=== PATIENT | female | born 2000 | race African-American/Black ===

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

== ENCOUNTER 2021-01-10 09:38 | Emergency (ER) | payer SELFPAY ==
[2021-01-10] MEDS ORDERED: SODIUM CHLORIDE 0.9% 1,000ML IVBOLUS ONE (10:00)
[2021-01-10] MEDS ORDERED: SODIUM CHLORIDE FLUSH 10ML SYR IVF ONE (10:00)
[2021-01-10] MEDS ORDERED: ONDANSETRON 2MG/ML, 2ML IVPush ONE (10:00)
--- NOTE | 2021-01-10 10:33 | NUR ---
G1, 8 WEEKS PG, +NAUSEA. WAS HERE 2 WEEKS AGO FOR SAME, REQUESTING MORE NAUSEA PILLS. LOWER BACK PAIN & H/A'S. NO RX DEAN. PA EVALUATED, LABS SENT, AWAITING UA SAMPLE FROM PATIENT, BOLUS RUNNING, PT MEDICATED PER EMAR WILL CONTINUE TO MONITOR, ATTACHED TO MONITORS, VSS, NADN, SO AT BEDSIDE.
[2021-01-10 10:51] LABS: BASOPHILS % (AUTO) 0 % (0-1); EOSINOPHILS % (AUTO) 0 % (1-7); LYMPHOCYTES % (AUTO) 6 % (22-44); MEAN CORPUSCULAR HEMOGLOBIN 31.8 pg (27.0-34.8); MEAN CORPUSCULAR HGB CONC 34.6 g/dL (32.4-35.8); MEAN PLATELET VOLUME 9.1 fL (7.4-10.4); MONOCYTES % (AUTO) 5 % (2-9); NEUTROPHILS % (AUTO) 89 % (42-75); PLATELET COUNT 271 x10^3/uL (130-400); RED BLOOD COUNT 5.06 x10^6/uL (3.82-5.3); RED CELL DISTRIBUTION WIDTH 13.8 % (9.6-15.2)
[2021-01-10 11:05] LABS: ALBUMIN 4.4 g/dL (3.4-5.0); ANION GAP 9 mmol/L (5-15); CALCIUM 9.6 mg/dL (8.5-10.1); CHLORIDE 103 mmol/L (98-107); CREATININE 0.74 mg/dL (0.55-1.02)
[2021-01-10 11:15] LABS: MD SCAN
--- NOTE | 2021-01-10 11:25 | NUR ---
DR. RENEE TO DO HEART TONE AT BEDSIDE. VSS. PATIENT RESTING IN BED WITH SO AT BESIDE. VIRGIL.
--- NOTE | 2021-01-10 11:30 | NUR ---
PATIENT STATES SHE IS FEELING RELIEF FROM N/V,
--- NOTE | 2021-01-10 12:03 | NUR ---
DR. RENEE AT BEDSIDE FOR HEART TONE
[2021-01-10 12:12] LABS: MICROSCOPIC INDICATED
[2021-01-10 13:07] VITALS: BP 121/83
== END 2021-01-10 13:09 | disposition home or self-care (01) ==
LOC: ED 11:16
DX: O26.891 Other specified pregnancy related conditions, first trimester (principal); R11.2 Nausea with vomiting, unspecified; R10.84 Generalized abdominal pain; Z88.0 Allergy status to penicillin; Z3A.01 Less than 8 weeks gestation of pregnancy
CPT/HCPCS: 36415; 80048; 81001; 82040; 84702; 85025; 87077; 87086; 87186; 96361; 96374; 99284; J2405; J7030

== ENCOUNTER 2021-01-21 18:00 | Emergency (ER) | payer SELFPAY ==
[~2021-01-21] VITALS: Ht 162.6 cm; Wt 51.9 kg
--- NOTE | 2021-01-21 18:33 | NUR ---
PT BROUGHT BACK TO ROOM FROM TRIAGE. PT STATES THAT SHE THINKS SHE IS ABOUT 10 WEEKS AND HAS NOT RECEIVED ANY CARE. PT CAME TO THE ER A COUPLE WEEKS AGO FOR NAUSEA AND RECIEVED A PRESCRIPTION FOR AN ANTIEMETIC. PT HAS SINCE RAN OUT OF HER MEDICATION AND HAS BEEN FEELING NAUSEAOUS AND HAS BEEN VOMITNG. PT STATED THAT TODAY SHE HAS BEEN "THROWING UP A LOT OF BLOOD." PT STATED THAT SHE HAD SOME DIARRHEA TODAY AND IS EXPRIENCING ABD PAIN. PT DENIES AND VAGINAL BLEEDING OR FEVER.
[2021-01-21] MEDS ORDERED: ONDANSETRON 2MG/ML, 2ML ONE (18:52)
[2021-01-21] MEDS ORDERED: ONDANSETRON 2MG/ML, 2ML IVPush ONE (19:00)
[2021-01-21] MEDS ORDERED: SODIUM CHLORIDE 0.9% 1,000ML IVBOLUS ONE ×2 (19:00→20:30)
[2021-01-21] MEDS ORDERED: SODIUM CHLORIDE FLUSH 10ML SYR IVF ONE (19:00)
[2021-01-21 19:08] LABS: BASOPHILS % (AUTO) 0 % (0-1); EOSINOPHILS % (AUTO) 0 % (1-7); LYMPHOCYTES % (AUTO) 3 % (22-44); MEAN CORPUSCULAR HEMOGLOBIN 31.4 pg (27.0-34.8); MEAN CORPUSCULAR HGB CONC 34.5 g/dL (32.4-35.8); MEAN PLATELET VOLUME 9.3 fL (7.4-10.4); MONOCYTES % (AUTO) 3 % (2-9); NEUTROPHILS % (AUTO) 94 % (42-75); PLATELET COUNT 243 x10^3/uL (130-400); RED BLOOD COUNT 4.54 x10^6/uL (3.82-5.3); RED CELL DISTRIBUTION WIDTH 13.7 % (9.6-15.2)
[2021-01-21 19:10] LABS: MD NO
[2021-01-21 19:15] LABS: ALBUMIN 3.9 g/dL (3.4-5.0); ANION GAP 10 mmol/L (5-15); CALCIUM 9.1 mg/dL (8.5-10.1); CHLORIDE 108 mmol/L (98-107); CREATININE 0.65 mg/dL (0.55-1.02)
--- NOTE | 2021-01-21 19:21 | NUR ---
ATTEMPT TO OBTAIN URINE SAMPLE. PT REFUSED TO GET UP AND TRY TO URINATE. PT EDUCATED THAT UA IS NEEDED TO CONTINUE WORK UP. PT STATED THAT SHE WILL "TRY SOON." PT RESTING COMFORTABLY IN BED. IVF INFUSING. CALL LIGHT WITHIN REACH.
[2021-01-21 20:04] LABS: MICROSCOPIC INDICATED
--- NOTE | 2021-01-21 20:27 | NUR ---
PT RESTING COMFORTABLY IN BED. SECOND LITER OF NS INFUSING. CALL LIGHT WITHIN REACH.
--- NOTE | 2021-01-21 21:00 | NUR ---
REPORT FROM PRAVEEN CARLTON.
[2021-01-21 21:17] VITALS: BP 130/85
== END 2021-01-21 21:45 | disposition home or self-care (01) ==
LOC: ED 19:00
DX: O21.0 Mild hyperemesis gravidarum (principal); E86.0 Dehydration; R10.2 Pelvic and perineal pain; Z3A.01 Less than 8 weeks gestation of pregnancy
CPT/HCPCS: 36415; 80048; 81001; 82040; 84702; 85025; 96361; 96374; 99283; J2405; J7030; 96360; 96372